=== PATIENT | male | born 2000 | race Caucasian/White ===

== ENCOUNTER 2018-04-07 04:00 | Emergency (ER) | payer SELFPAY ==
[2018-04-07 04:11] VITALS: RESP 20
--- NOTE | 2018-04-07 04:58 | C.PDOC ---
History Of Present Illness 18 y/o male presents to the ED complaining of a sore throat that began a couple of hours ago. Had intermittent sore throat for the last week, which resolves on its own. He denies any cough, congestion, rhinorrhea, fevers, or chills. States he used a throat spray and lozenges without relief. Otherwise patient has no difficulty breathing, difficulty swallowing, lip/tongue swelling, or chest pain. Time Seen by Provider: 04/07/18 04:11 Chief Complaint (Nursing): ENT Problem History Per: Patient History/Exam Limitations: None Onset/Duration Of Symptoms: Hrs Current Symptoms Are (Timing): Still Present Past Medical History Reviewed: Historical Data, Nursing Documentation, Vital Signs Vital Signs: Last Vital Signs Temp 98.7 F 04/07/18 04:09 Pulse 90 04/07/18 04:09 Resp 20 04/07/18 04:09 BP 122/70 04/07/18 04:09 Pulse Ox 99 04/07/18 04:09 - Medical History PMH: No Chronic Diseases Family History: States: Unknown Family Hx - Social History Hx Tobacco Use: Yes Hx Alcohol Use: No Hx Substance Use: No - Immunization History Hx Tetanus Toxoid Vaccination: No Hx Influenza Vaccination: No Hx Pneumococcal Vaccination: No Review Of Systems Constitutional: Negative for: Fever, Chills ENT: Positive for: Throat Pain. Negative for: Nose Discharge, Nose Congestion, Mouth Swelling, Throat Swelling, Other (difficulty swallowing) Cardiovascular: Negative for: Chest Pain Respiratory: Negative for: Cough, Shortness of Breath Neurological: Negative for: Headache Physical Exam - Physical Exam Appears: Well, Non-toxic, No Acute Distress Skin: Normal Color, Warm, Dry Head: Atraumatic, Normacephalic Eye(s): bilateral: Normal Inspection, EOMI Nose: Normal Oral Mucosa: Moist Throat: Erythema, No Exudate, No Drooling, No Mass, Other (uvula midline) Neck: Normal ROM, No Midline Cervical Tenderness, No Paracervical Tenderness, Supple Lymphatic: Normal Exam, No Adenopathy, No Axilla Node Tenderness Chest: Symmetrical Cardiovascular: Rhythm Regular Respiratory: Normal Breath Sounds, No Accessory Muscle Use, No Rhonchi, No Wheezing Extremity: Normal ROM Neurological/Psych: Oriented x3, Normal Speech ED Course And Treatment O2 Sat by Pulse Oximetry: 99 (RA) Pulse Ox Interpretation: Normal Progress Note: Rapid strep test sent. Motrin PO administered for pain. Patient tolerating PO in the ED. Pt instructed symptomatic treatment and advised patient to follow up with PMD in 1-2 days. Disposition Counseled Patient/Family Regarding: Studies Performed, Diagnosis, Need For Followup, Rx Given - Disposition Disposition: HOME/ ROUTINE Disposition Time: 05:25 Condition: STABLE Additional Instructions: Follow up with your PMD in 1-2 days. Return to ER if symptoms persist or worsen. 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 - Scribe Statement The provider has reviewed the documentation as recorded by the Scribe (Adenike Drew) All medical record entries made by the Scribe were at my direction and personally dictated by me. I have reviewed the chart and agree that the record accurately reflects my personal performance of the history, physical exam, medical decision making, and the department course for this patient. I have also personally directed, reviewed, and agree with the discharge instructions and disposition.
[2018-04-07 05:33] VITALS: BP 124/72; PULSE 81; TEMP 98
[2018-04-07 05:45] VITALS: O2SAT 99
== END 2018-04-07 05:33 | disposition home or self-care (01) ==
LOC: C.ER 04:00
DX: J02.9 Acute pharyngitis, unspecified (principal)